=== PATIENT | female | born 1960 | race Caucasian/White ===

== ENCOUNTER 2016-07-22 20:08 | Emergency (ER) | payer OTHER, BC ==
[~2016-07-22 20:08] MED LIST: ACIPHEX PO; ASAB PO; CRESTOR10 PO; HYZAAR 50/12.51 TAB PO; IMITREX25 PO; LEXAPRO10 PO; LIPITOR10 PO; MULTIVITAMI1; PRIN10 PO; VITAMIN B PO; VITAMIN B-121000 MC1 SL; VITAMIN E; VOLT25 PO; X5 PO
[2016-08-10] MEDS ORDERED: SINGULAIR1 PO (18:23)
== END 2016-07-22 22:00 | disposition home or self-care (01) ==
LOC: ER 20:08
DX: M54.5 Low back pain (principal); Z79.899 Other long term (current) drug therapy; Z79.82 Long term (current) use of aspirin
CPT/HCPCS: 96372; 99283; J1885